=== PATIENT | female | born 1995 | race Caucasian/White ===

== ENCOUNTER 2021-02-26 22:41 | Inpatient (IN) | payer OTHER ==
[2021-02-26] MEDS ORDERED: Calcium Carbonate 500 MG Tab.Chew PO PRN (23:04)
[2021-02-26] MEDS ORDERED: Sodium Chloride 0.9% 10 ML Syringe FLUSH PRN (23:04)
[2021-02-26] MEDS ORDERED: Ondansetron 4 MG/2 ML SDV IVPUSH PRN (23:04)
[2021-02-26] MEDS ORDERED: Acetaminophen 325 MG Tab PO PRN (23:04)
[2021-02-26] MEDS ORDERED: Lidocaine 1% 50 ML MDV INJECT ONE (23:04)
[2021-02-26] MEDS ORDERED: Nalbuphine 10 MG/1 ML Vial IVPUSH PRN (23:04)
[2021-02-26] MEDS ORDERED: Oxytocin/Lactated Ringers 10 UNIT/1,000 ML BAG IV SCH ×2 (23:15)
[2021-02-26] MEDS: Lactated Ringers 1,000 ML IV SCH (23:37)
[2021-02-27] MEDS ORDERED: ePHEDrine 50 MG/ML SDV IVPUSH PRN (00:08)
[2021-02-27] MEDS ORDERED: fentaNYL 100 MCG/2 ML SDV EPIDUR PRN (00:08)
[2021-02-27] MEDS ORDERED: Bupivacaine/fentaNYL/NS 100 ML Bag EPIDUR PRN (00:08)
[2021-02-27] MEDS ORDERED: diphenhydrAMINE 50 MG/ML SDV IVPUSH PRN (00:08)
[2021-02-27] MEDS: Lactated Ringers 1,000 ML IV SCH (00:15)
--- NOTE | 2021-02-27 00:19 | PCM.PREANE ---
Preanesthetic Assessment - Procedure Proposed Procedure: Labor epidural - Anesthesia/Transfusion/Family Hx Anesthesia History: Prior Anesthesia Without Reaction Family History of Anesthesia Reaction: No Transfusion History: No Prior Transfusion(s) Intubation History: Unknown - Review of Systems General: No Symptoms Pulmonary: No Symptoms Cardiovascular: No Symptoms Gastrointestinal: Abdominal Pain (uterine contractions) Neurological: No Symptoms Other: Reports: None - Physical Assessment NPO Status Date: 02/26/21 NPO Status Time: 21:30 Vital Signs: Last Vital Signs Temp 98.4 F 02/26/21 23:05 Pulse 73 02/26/21 23:05 Resp 16 02/26/21 23:05 BP 126/88 02/26/21 23:05 Pulse Ox 98 02/26/21 23:05 Height: 1.73 m Weight: 67.132 kg ASA Class: 2 Mental Status: Alert & Oriented x3 Airway Class: Mallampati = 2 Dentition: Reports: Normal Dentition Thyro-Mental Finger Breadths: 3 Mouth Opening Finger Breadths: 3 ROM/Head Extension: Full Lungs: Clear to Auscultation, Normal Respiratory Effort Cardiovascular: Regular Rate, Regular Rhythm - Lab Values: Laboratory Last Values WBC 9.73 K/mm3 (3.98-10.04) 02/26/21 23:20 RBC 3.94 M/mm3 (3.98-5.22) L 02/26/21 23:20 Hgb 11.6 gm/dl (11.2-15.7) 02/26/21 23:20 Hct 35.0 % (34.1-44.9) 02/26/21 23:20 MCV 88.8 fl (79.4-94.8) 02/26/21 23:20 MCH 29.4 pg (25.6-32.2) 02/26/21 23:20 MCHC 33.1 g/dl (32.2-35.5) 02/26/21 23:20 RDW Std Deviation 44.2 fL (36.4-46.3) 02/26/21 23:20 Plt Count 197 K/mm3 (182-369) 02/26/21 23:20 MPV 10.0 fl (9.4-12.3) 02/26/21 23:20 Neut % (Auto) 71.4 % (34.0-71.1) H 02/26/21 23:20 Lymph % (Auto) 17.5 % (19.3-51.7) L 02/26/21 23:20 [place] % (Auto) 9.7 % (4.7-12.5) 02/26/21 23:20 Eos % (Auto) 0.8 (0.7-5.8) 02/26/21 23:20 Baso % (Auto) 0.1 % (0.1-1.2) 02/26/21 23:20 Neut # (Auto) 6.95 K/mm3 (1.56-6.13) H 02/26/21 23:20 Lymph # (Auto) 1.70 K/mm3 (1.18-3.74) 02/26/21 23:20 Scott # (Auto) 0.94 K/mm3 (0.24-0.36) H 02/26/21 23:20 Eos # (Auto) 0.08 K/mm3 (0.04-0.36) 02/26/21 23:20 Baso # (Auto) 0.01 K/mm3 (0.01-0.08) 02/26/21 23:20 SARS-CoV-2 RNA (LIONEL) Negative (NEGATIVE) 02/26/21 23:09 - Allergies Allergies/Adverse Reactions: Allergies Allergy/AdvReac Type Severity Reaction Status Date / Time amoxicillin Allergy Other Verified 02/26/21 12:55 - Blood Blood Available: No Product(s) Available: None - Anesthesia Plan Pre-Op Medication Ordered: None - Acknowledgements Anesthesia Type Planned: Epidural Pt an Appropriate Candidate for the Planned Anesthesia: Yes Alternatives and Risks of Anesthesia Discussed w Pt/Guardian: Yes Pt/Guardian Understands and Agrees with Anesthesia Plan: Yes PreAnesthesia Questionnaire Gastrointestinal History: Reports: GERD 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: - Past Surgical History HEENT Surgical History: Reports: Oral Surgery - SUBSTANCE USE Tobacco Use Status *Q: Former Tobacco User Tobacco Use Within Last Twelve Months: No Second Hand Smoke Exposure: No Days Per Week of Alcohol Use: 0 Number of Drinks Per Day: 0 Total Drinks Per Week: 0 Recreational Drug Use History: No - HOME MEDS Home Medications: Home Meds Iron,Carbonyl/Ascorbic Acid [Iron 100-Vitamin C Tablet] 1 each PO DAILY 02/26/21 [History] Pnv,Calcium 72/Iron/Folic Acid [Pnv Plus Multivit Tab] 1 each PO DAILY 02/26/21 [History] - CURRENT (IN HOUSE) MEDS Current Meds: Current Medications Acetaminophen (Acetaminophen 325 Mg Tab) 650 mg PO Q4H PRN PRN Reason: Pain (Mild 1-3) and fever Calcium Carbonate/Glycine (Calcium Carbonate 500 Mg Tab.Chew) 1,000 mg PO Q2H PRN PRN Reason: Indigestion Diphenhydramine HCl (Diphenhydramine 50 Mg/Ml Sdv) 25 mg IVPUSH Q6H PRN PRN Reason: pruritis Ephedrine Sulfate (Ephedrine 50 Mg/Ml Sdv) 5 mg IVPUSH ASDIRECTED PRN PRN Reason: Hypotension Fentanyl (Fentanyl 100 Mcg/2 Ml Sdv) 100 mcg EPIDUR Q3H PRN PRN Reason: Pain Fentanyl/Bupivacaine HCl (Bupivacaine/Fentanyl/Ns 100 Ml Bag) 100 ml EPIDUR ASDIRECTED PRN PRN Reason: Pain Lactated Ringer's (Ringers, Lactated) 1,000 mls @ 100 mls/hr IV ASDIRECTED POLI Last Admin: 02/26/21 23:37 Dose: 100 mls/hr Documented by: Oxytocin/Lactated Ringer's (Pitocin In Lr 10 Units/1,000 Ml) 10 unit in 1,000 mls @ 500 mls/hr IV .CONTINUOUS POLI Oxytocin/Lactated Ringer's (Pitocin In Lr 10 Units/1,000 Ml) 10 unit in 1,000 mls @ 12 mls/hr IV TITRATE POLI; Protocol Nalbuphine HCl (Nalbuphine 10 Mg/1 Ml Vial) 10 mg IVPUSH Q2H PRN PRN Reason: Pain Ondansetron HCl (Ondansetron 4 Mg/2 Ml Sdv) 4 mg IVPUSH Q4H PRN PRN Reason: Nausea/Vomiting Sodium Chloride (Sodium Chloride 0.9% 10 Ml Syringe) 10 ml FLUSH ASDIRECTED PRN PRN Reason: Keep Vein Open Discontinued Medications Lidocaine HCl (Lidocaine 1% 50 Ml Mdv) 50 ml INJECT ONETIME ONE Stop: 02/26/21 23:05
--- NOTE | 2021-02-27 02:51 | PCM.LDHP ---
L&D History of Present Illness - General Date of Service: 02/26/21 Admit Problem/Dx: Patient Status Order with Admit Dx/Problem 02/26/21 22:47 Patient Status [ADT] Routine 02/26/21 23:05 Patient Status [ADT] Routine 02/27/21 23:05 Patient Status [ADT] Routine Admission Diagnosis/Problem Admission Diagnosis/Problem Spontaneous vaginal delivery Source of Information: Patient History Limitations: Reports: No Limitations - History of Present Illness Introduction:: 25 yo at 40 weeks gestation presented to the hospital at 2240 having moderate contractions about every 5 minutes apart. She hadn't felt the baby move for about 20 minutes and was worried. Membranes intact. She had been in earlier in the day as well, concerned that she was leaking fluid, but Amnisure was negative and she was not having regular contractions at that time and she was sent home . She does have a history of hypothyroidism and was on lev othyroxine but was not taking it regularly during her and her TSH level was normal, so I advised her to stay off. Repeat thyroid testing was normal as well. She has had some mild anemia with the and has been taking her vitamin and an extra iron tablet. labs were wnl and all the infectious disease screenings were negative including Hep C ab. Blood type O positive. 1 hour glucola was normal at 77. Group B strep test was negative. She breastfed with her last baby for 18 months and plans to breastfeed with this baby. She is having a boy and will want him circumcised. Last ultrasound was on 02/01/21 and EFW was 6 lb 15 oz, cephalic presentation and BPP 8/8. ARTIS 11.0. On admit, RN exam revealed cervix 3-4 cm, 90% effaced, midposition, vertex prese ntation and station -2. Contractions were q 2 to 4 minutes, lasting 60 secs and moderate in intensity. Membranes intact. She will be admitted and vaginal delivery anticipated. 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 Para: 1 Hematologic History: Reports: Anemia - Past Surgical History HEENT Surgical History: Reports: Oral Surgery Social & Family History - Tobacco Use Tobacco Use Status *Q: Former Tobacco User Second Hand Smoke Exposure: No - Alcohol Use Days Per Week of Alcohol Use: 0 Number of Drinks Per Day: 0 Total Drinks Per Week: 0 - Recreational Drug Use Recreational Drug Use: No - Living Situation & Occupation Living situation: Reports: H&P Review of Systems - Review of Systems: Review Of Systems: See Below General: Reports: No Symptoms HEENT: Reports: No Symptoms Pulmonary: Reports: No Symptoms Cardiovascular: Reports: No Symptoms Gastrointestinal: Reports: No Symptoms Genitourinary: Reports: No Symptoms Musculoskeletal: Reports: No Symptoms Skin: Reports: No Symptoms Psychiatric: Reports: No Symptoms Neurological: Reports: No Symptoms Hematologic/Lymphatic: Reports: No Symptoms Immunologic: Reports: No Symptoms L&D Exam - Exam Exam: See Below - Vital Signs Vital Signs: Last Vital Signs Temp 36.9 C 02/26/21 23:05 Pulse 73 02/26/21 23:05 Resp 16 02/26/21 23:05 BP 126/88 02/26/21 23:05 Pulse Ox 98 02/26/21 23:05 Weight: 67.132 kg - OB Specific Contraction Duration (sec): 60-80 Contraction Frequency (min): 2 to 4 Contraction Intensity: Moderate Movement: Active Heart Tones: Present Heart Tones per Min: 130 Heart Rate (FHR) Variability: Moderate (6-25 bmp) Presentation: Vertex Estimated Weight: 8 lb - Bruner Score Bruner Score Cervix Position: Midposition Bruner Score Consistency: Soft Bruner Score Effacement: >80% Bruner Score Dilation: 3-4 cm Bruner Score Infant's Station: -2 Bruner Score Total: 9 - Exam General: Alert, Oriented HEENT: Mucosa Moist & [place] Lungs: Normal Respiratory Effort Cardiovascular: Regular Rate GI/Abdominal Exam: Normal Bowel Sounds Rectal Exam: Deferred Genitourinary: Normal external exam, Enlarged uterus Back Exam: Normal Inspection, Full Range of Motion Extremities: Normal Range of Motion, No Pedal Edema Skin: Warm, Dry, Intact Psychiatric: Alert, Normal Affect, Normal Mood - Patient Data Lab Results Last 24 hrs: Laboratory Results - last 24 hr 02/26/21 02/26/21 02/26/21 Range/Units 23:09 23:20 23:20 WBC 9.73 (3.98-10.04) K/mm3 RBC 3.94 L (3.98-5.22) M/mm3 Hgb 11.6 (11.2-15.7) gm/dl Hct 35.0 (34.1-44.9) % MCV 88.8 (79.4-94.8) fl MCH 29.4 (25.6-32.2) pg MCHC 33.1 (32.2-35.5) g/dl RDW Std Deviation 44.2 (36.4-46.3) fL Plt Count 197 (182-369) K/mm3 MPV 10.0 (9.4-12.3) fl Neut % (Auto) 71.4 H (34.0-71.1) % Lymph % (Auto) 17.5 L (19.3-51.7) % [place] % (Auto) 9.7 (4.7-12.5) % Eos % (Auto) 0.8 (0.7-5.8) Baso % (Auto) 0.1 (0.1-1.2) % Neut # (Auto) 6.95 H (1.56-6.13) K/mm3 Lymph # (Auto) 1.70 (1.18-3.74) K/mm3 [place] # (Auto) 0.94 H (0.24-0.36) K/mm3 Eos # (Auto) 0.08 (0.04-0.36) K/mm3 Baso # (Auto) 0.01 (0.01-0.08) K/mm3 SARS-CoV-2 RNA (LIONEL) Negative (NEGATIVE) Blood Type O POSITIVE Gel Antibody Screen Negative Result Diagrams: 02/26/21 23:20 - Problem List (1) 40 weeks gestation of SNOMED Code(s): 78434741 ICD Code: Z3A.40 - 40 WEEKS GESTATION OF Status: Acute Current Visit: Yes (2) Anemia affecting SNOMED Code(s): 98381869 ICD Code: O99.019 - ANEMIA COMPLICATING , UNSPECIFIED TRIMESTER Status: Acute Current Visit: Yes Problem List Initiated/Reviewed/Updated: Yes Orders Last 24hrs: Active Orders 24 hr Category Date Time Status Patient Status Manage Transfer [TRANSFER] Routine ADT 02/27/21 02:29 Ordered Patient Status [ADT] Routine ADT 02/27/21 23:05 Active Activity as Tolerated [RC] PFP Care 02/26/21 23:05 Active Communication Order [RC] ASDIRECTED Care 02/26/21 23:05 Active Heart Tones [RC] ASDIRECTED Care 02/26/21 23:05 Active Non Stress Test [RC] PER UNIT ROUTINE Care 02/26/21 22:47 Active Notify Provider [RC] ASDIRECTED Care 02/27/21 00:08 Active Notify Provider [RC] PFP Care 02/26/21 23:05 Active Notify Provider [RC] PRN Care 02/26/21 23:05 Active Peripheral IV Care [RC] . DIRECTED Care 02/26/21 23:05 Active Vital Signs [RC] PER UNIT ROUTINE Care 02/26/21 22:47 Active Vital Signs [RC] PER UNIT ROUTINE Care 02/26/21 23:05 Active Regular Diet [DIET] Diet 02/27/21 Breakfast Active RAPID PLASMA REAGIN,RPR [CHEM] Routine Lab 02/26/21 23:20 Received Acetaminophen [TylenoL] Med 02/26/21 23:04 Active 650 mg PO Q4H PRN Bupivacaine/fentaNYL/NS [fentaNYL/Bupivacaine/NS 2 MCG- Med 02/27/21 00:08 Active 0.125% 100 ML] 100 ml EPIDUR ASDIRECTED PRN Calcium Carbonate [Tums] Med 02/26/21 23:04 Active 1,000 mg PO Q2H PRN Lactated Ringers [Ringers, Lactated] 1,000 ml Med 02/26/21 23:15 Active IV ASDIRECTED Nalbuphine [Nubain] Med 02/26/21 23:04 Active 10 mg IVPUSH Q2H PRN Ondansetron [Zofran] Med 02/26/21 23:04 Active 4 mg IVPUSH Q4H PRN Oxytocin/Lactated Ringers [Pitocin in LR 10 Units/1,000 Med 02/26/21 23:15 Active ML] 10 unit in 1,000 ml IV .CONTINUOUS Oxytocin/Lactated Ringers [Pitocin in LR 10 Units/1,000 Med 02/26/21 23:15 Active ML] 10 unit in 1,000 ml IV TITRATE Sodium Chloride 0.9% [Saline Flush] Med 02/26/21 23:04 Active 10 ml FLUSH ASDIRECTED PRN diphenhydrAMINE [Benadryl] Med 02/27/21 00:08 Active 25 mg IVPUSH Q6H PRN ePHEDrine [ePHEDrine sulfate] Med 02/27/21 00:08 Active 5 mg IVPUSH ASDIRECTED PRN fentaNYL [Sublimaze] Med 02/27/21 00:08 Active 100 mcg EPIDUR Q3H PRN Electronic Heart Tones Ext w TOCO [WOMSER] Oth 02/26/21 23:05 Ordered Routine Electronic Heart Tones Internal [WOMSER] Per Unit Oth 02/26/21 23:05 Ordered Routine Peripheral IV Insertion Adult [OM.PC] Routine Oth 02/26/21 23:05 Ordered Resuscitation Status Routine Resus Stat 02/26/21 23:04 Ordered Medication Orders Acetaminophen (Acetaminophen 325 Mg Tab) 650 mg PO Q4H PRN PRN Reason: Pain (Mild 1-3) and fever Calcium Carbonate/Glycine (Calcium Carbonate 500 Mg Tab.Chew) 1,000 mg PO Q2H PRN PRN Reason: Indigestion Diphenhydramine HCl (Diphenhydramine 50 Mg/Ml Sdv) 25 mg IVPUSH Q6H PRN PRN Reason: pruritis Ephedrine Sulfate (Ephedrine 50 Mg/Ml Sdv) 5 mg IVPUSH ASDIRECTED PRN PRN Reason: Hypotension Fentanyl (Fentanyl 100 Mcg/2 Ml Sdv) 100 mcg EPIDUR Q3H PRN PRN Reason: Pain Last Admin: 02/27/21 00:19 Dose: 100 mcg Documented by: AVEL Fentanyl/Bupivacaine HCl (Bupivacaine/Fentanyl/Ns 100 Ml Bag) 100 ml EPIDUR ASDIRECTED PRN PRN Reason: Pain Last Admin: 02/27/21 00:19 Dose: 100 ml Documented by: AVEL Lactated Ringer's (Ringers, Lactated) 1,000 mls @ 100 mls/hr IV ASDIRECTED POLI Last Admin: 02/27/21 00:15 Dose: 100 mls/hr Documented by: Infusion: 02/27/21 00:15 Dose: 100 mls/hr Documented by: Admin: 02/26/21 23:37 Dose: 100 mls/hr Documented by: FIDEL Oxytocin/Lactated Ringer's (Pitocin In Lr 10 Units/1,000 Ml) 10 unit in 1,000 mls @ 500 mls/hr IV .CONTINUOUS POLI Oxytocin/Lactated Ringer's (Pitocin In Lr 10 Units/1,000 Ml) 10 unit in 1,000 mls @ 12 mls/hr IV TITRATE POLI; Protocol Nalbuphine HCl (Nalbuphine 10 Mg/1 Ml Vial) 10 mg IVPUSH Q2H PRN PRN Reason: Pain Ondansetron HCl (Ondansetron 4 Mg/2 Ml Sdv) 4 mg IVPUSH Q4H PRN PRN Reason: Nausea/Vomiting Sodium Chloride (Sodium Chloride 0.9% 10 Ml Syringe) 10 ml FLUSH ASDIRECTED PRN PRN Reason: Keep Vein Open Assessment/Plan Comment:: 25 yo at 40 weeks gestation presents in spontaneous labor, membranes intact. Cervix 3-4 cm, 90% effaced, vertex presentation and regular contractions. Plan: Admit in early labor. Expectant management, anticipate vaginal delivery. Epidural if patient requests. Plan skin to skin after delivery and . Patient would like to wait 24 hours for Hep B vaccination, but OK with immediate vitamin K and eye ointment. Plan for circumcision after about 12 hours of age.
[2021-02-27] MEDS ORDERED: Bupivacaine 0.25% 10 ML SDV ONE (03:00)
--- NOTE | 2021-02-27 03:12 | PCM.DEL ---
L & D Note - General Info Date of Service: 02/27/21 Mother's Due Date: 02/26/21 - Delivery Note Labor: Spontaneous Delivery Outcome: Livebirth Infant Delivery Method: Spontaneous Vaginal Delivery-Single Infant Delivery Mode: Spontaneous Presentation: Left Occiput Anterior (PRINCESS) Nuchal Cord: None Anesthesia Type: Epidural Amniotic Fluid Description: Clear Episiotomy Type: None Laceration: None Placenta: Intact, Spontaneous Cord: 3 Vessels Estimated Blood Loss: 100 Resuscitation Needed: No : Suctioned, Bulb Syringe, Stimulated, Warmed, [place] Used Provider: Indira Hernandez Score 1 min: 9 Score 5 min: 9 Delivery Comments (Free Text/Narrative):: 25 yo at 40 weeks gestation presented to the hospital at 2240 having moderate contractions about every 5 minutes apart. She hadn't felt the baby move for about 20 minutes and was worried. Membranes intact. She had been in earlier in the day as well, concerned that she was leaking fluid, but Amnisure was negative and she was not having regular contractions at that time and she was sent home . She does have a history of hypothyroidism and was on levothyroxine but was not taking it regularly during her and her TSH level was normal, so I advised her to stay off. Repeat thyroid testing was normal as well. She has had some mild anemia with the and has been taking her vitamin and an extra iron tablet. labs were wnl and all the infectious disease screenings were negative including Hep C ab. Blood type O positive. 1 hour glucola was normal at 77. Group B strep test was negative. She breastfed with her last baby for 18 months and plans to breastfeed with this baby. She is having a boy and will want him circumcised. Last ultrasound was on 02/01/21 and EFW was 6 lb 15 oz, cephalic presentation and BPP 8/8. ARTIS 11.0. On admit, RN exam revealed cervix 3-4 cm, 90% effaced, midposition, vertex presentation and station -2. Contractions were q 2 to 4 minutes, lasting 60 secs and moderate in intensity. Membranes intact. She had SROM at 2337 for clear fluid. Her contractions intensified after that and she did request an epidural which was completed at 0100. [place] catheter was placed after epidural and 350 ml drained. She was feeling left pelvic pain and monitor was showing early decels and RN checked her at 0120 and she was 9 cm, 100% effaced a nd 0 station. When I arrived at the hospital at 0130, she was completely dilated with +2 station and we had her set up to start pushing. She delivered baby's head with 1 set of pushes and the shoulders and the rest of the baby with another set of pushes. Perineum was intact. There was no nuchal cord. Baby was in PRINCESS presentation. Baby boy with time of delivery 0145. Baby was dried and stimulated and mouth and nose suctioned with bulb suction and then placed on mother's abdomen. Once the cord stopped pulsating, it was clamped and cut. 3 vessels in the cord. She was given pitocin IV bolus after delivery of baby. Placenta delivered spontaneously at 0151 and was intact. Uterus was firm, bimanual exam done and small amount of blood clots expressed. EBL 100 ml. Baby weighed 8 lb 12 oz (3970 grams). He was placed skin to skin on mother's chest and was latched and nursing by 0210. Both Mom and baby were left in the delivery room in stable condition. - General Info Date of Service: 02/27/21 Admission Dx/Problem (Free Text): Patient Status Order with Admit Dx/Problem 02/26/21 22:47 Patient Status [ADT] Routine 02/26/21 23:05 Patient Status [ADT] Routine 02/27/21 23:05 Patient Status [ADT] Routine Admission Diagnosis/Problem Admission Diagnosis/Problem Spontaneous vaginal delivery - Review of Systems General: Reports: No Symptoms HEENT: Reports: No Symptoms Pulmonary: Reports: No Symptoms Cardiovascular: Reports: No Symptoms Gastrointestinal: Reports: No Symptoms Genitourinary: Reports: No Symptoms Musculoskeletal: Reports: No Symptoms Skin: Reports: No Symptoms Neurological: Reports: No Symptoms Psychiatric: Reports: No Symptoms - Patient Data Vitals - Most Recent: Last Vital Signs Temp 36.9 C 02/26/21 23:05 Pulse 73 02/26/21 23:05 Resp 16 02/26/21 23:05 BP 126/88 02/26/21 23:05 Pulse Ox 98 02/26/21 23:05 Weight - Most Recent: 67.132 kg Lab Results Last 24 Hours: Laboratory Results - last 24 hr 07/06/0902/26/21 02/26/21 Range/Units 23:09 23:20 23:20 WBC 9.73 (3.98-10.04) K/mm3 RBC 3.94 L (3.98-5.22) M/mm3 Hgb 11.6 (11.2-15.7) gm/dl Hct 35.0 (34.1-44.9) % MCV 88.8 (79.4-94.8) fl MCH 29.4 (25.6-32.2) pg MCHC 33.1 (32.2-35.5) g/dl RDW Std Deviation 44.2 (36.4-46.3) fL Plt Count 197 (182-369) K/mm3 MPV 10.0 (9.4-12.3) fl Neut % (Auto) 71.4 H (34.0-71.1) % Lymph % (Auto) 17.5 L (19.3-51.7) % [place] % (Auto) 9.7 (4.7-12.5) % Eos % (Auto) 0.8 (0.7-5.8) Baso % (Auto) 0.1 (0.1-1.2) % Neut # (Auto) 6.95 H (1.56-6.13) K/mm3 Lymph # (Auto) 1.70 (1.18-3.74) K/mm3 [place] # (Auto) 0.94 H (0.24-0.36) K/mm3 Eos # (Auto) 0.08 (0.04-0.36) K/mm3 Baso # (Auto) 0.01 (0.01-0.08) K/mm3 SARS-CoV-2 RNA (LIONEL) Negative (NEGATIVE) Blood Type O POSITIVE Gel Antibody Screen Negative Med Orders - Current: Current Medications Acetaminophen (Acetaminophen 325 Mg Tab) 650 mg PO Q4H PRN PRN Reason: Pain (Mild 1-3) and fever Calcium Carbonate/Glycine (Calcium Carbonate 500 Mg Tab.Chew) 1,000 mg PO Q2H PRN PRN Reason: Indigestion Diphenhydramine HCl (Diphenhydramine 50 Mg/Ml Sdv) 25 mg IVPUSH Q6H PRN PRN Reason: pruritis Ephedrine Sulfate (Ephedrine 50 Mg/Ml Sdv) 5 mg IVPUSH ASDIRECTED PRN PRN Reason: Hypotension Fentanyl (Fentanyl 100 Mcg/2 Ml Sdv) 100 mcg EPIDUR Q3H PRN PRN Reason: Pain Last Admin: 02/27/21 00:19 Dose: 100 mcg Documented by: Fentanyl/Bupivacaine HCl (Bupivacaine/Fentanyl/Ns 100 Ml Bag) 100 ml EPIDUR ASDIRECTED PRN PRN Reason: Pain Last Admin: 02/27/21 00:19 Dose: 100 ml Documented by: Lactated Ringer's (Ringers, Lactated) 1,000 mls @ 100 mls/hr IV ASDIRECTED POLI Last Admin: 02/27/21 00:15 Dose: 100 mls/hr Documented by: Oxytocin/Lactated Ringer's (Pitocin In Lr 10 Units/1,000 Ml) 10 unit in 1,000 mls @ 500 mls/hr IV .CONTINUOUS POLI Oxytocin/Lactated Ringer's (Pitocin In Lr 10 Units/1,000 Ml) 10 unit in 1,000 mls @ 12 mls/hr IV TITRATE POLI; Protocol Nalbuphine HCl (Nalbuphine 10 Mg/1 Ml Vial) 10 mg IVPUSH Q2H PRN PRN Reason: Pain Ondansetron HCl (Ondansetron 4 Mg/2 Ml Sdv) 4 mg IVPUSH Q4H PRN PRN Reason: Nausea/Vomiting Sodium Chloride (Sodium Chloride 0.9% 10 Ml Syringe) 10 ml FLUSH ASDIRECTED PRN PRN Reason: Keep Vein Open Discontinued Medications Lidocaine HCl (Lidocaine 1% 50 Ml Mdv) 50 ml INJECT ONETIME ONE Stop: 02/26/21 23:05 - Exam General: Alert, Oriented, Cooperative, No Acute Distress HEENT: Pupils Equal, Mucous Membr. Moist/[place] Neck: Supple Lungs: Normal Respiratory Effort Cardiovascular: Regular Rate, Regular Rhythm GI/Abdominal Exam: Normal Bowel Sounds, Soft (Female) Exam: Normal External Exam, Vaginal Bleeding, Other (fundus firm, at umbilicus) Back Exam: Normal Inspection, Full Range of Motion Extremities: Normal Inspection, Normal Range of Motion, Non-Tender, No Pedal Edema, Normal Capillary Refill Skin: Warm, Dry, Intact Neurological: No New Focal Deficit Psy/Mental Status: Alert, Normal Affect, Normal Mood - Problem List & Annotations (1) 40 weeks gestation of SNOMED Code(s): 38957152 Code(s): Z3A.40 - 40 WEEKS GESTATION OF Status: Acute Current Visit: Yes (2) Anemia affecting SNOMED Code(s): 88527308 Code(s): O99.019 - ANEMIA COMPLICATING , UNSPECIFIED TRIMESTER Status: Acute Current Visit: Yes (3) Normal spontaneous vaginal delivery SNOMED Code(s): 91095217, 650329133 Code(s): O80 - ENCOUNTER FOR FULL-TERM UNCOMPLICATED DELIVERY Status: Acute Current Visit: Yes (4) Breast feeding status of mother SNOMED Code(s): 350222229 Code(s): Z39.1 - ENCOUNTER FOR CARE AND EXAMINATION OF LACTATING MOTHER Status: Acute Current Visit: Yes - Problem List Review Problem List Initiated/Reviewed/Updated: Yes - My Orders Last 24 Hours: My Active Orders 02/27/21 02:29 Patient Status Manage Transfer [TRANSFER] Routine 02/27/21 23:05 Patient Status [ADT] Routine - Assessment Assessment:: at 40+1 weeks gestation with spontaneous onset of labor and SROM. GBS negative. No perineal laceration. EBL 100 ml, uterus firm after delivery of placenta. Epidural for labor analgesia without complications. Baby latched and was nursing 25 minutes after delivery. Plan: Routine care. support and education. - Plan Plan:: 25 yo at 40 weeks gestation presents in spontaneous labor, membranes intact. Cervix 3-4 cm, 90% effaced, vertex presentation and regular contractions. Plan: Admit in early labor. Expectant management, anticipate vaginal delivery. Epidural if patient requests. Plan skin to skin after delivery and . Patient would like to wait 24 hours for Hep B vaccination, but OK with immediate vitamin K and eye ointment. Plan for circumcision after about 12 hours of age.
[2021-02-27] MEDS ORDERED: Benzocaine/Menthol 20%-0.5% Spray 56 GM Canister TOP PRN (03:34)
[2021-02-27] MEDS ORDERED: Witch Hazel Medicated Pads 40/Jar TOP PRN (03:34)
[2021-02-27] MEDS: Prenatal Multivitamin with Calcium/Folic Acid/Iron Tab PO SCH (08:03)
[2021-02-27] MEDS: Ibuprofen 800 MG Tab PO PRN ×3 (08:03→22:11)
--- NOTE | 2021-02-27 16:27 | PCM.PNPP ---
- General Info Date of Service: 02/27/21 Admission Dx/Problem (Free Text): Patient Status Order with Admit Dx/Problem 02/26/21 22:47 Patient Status [ADT] Routine 02/26/21 23:05 Patient Status [ADT] Routine 02/27/21 23:05 Patient Status [ADT] Routine Admission Diagnosis/Problem Admission Diagnosis/Problem Spontaneous vaginal delivery Functional Status: Reports: Pain Controlled, Tolerating Diet, Ambulating, Urinating - Review of Systems General: Reports: No Symptoms HEENT: Reports: No Symptoms Pulmonary: Reports: No Symptoms Cardiovascular: Reports: No Symptoms Gastrointestinal: Reports: No Symptoms Genitourinary: Reports: No Symptoms Musculoskeletal: Reports: No Symptoms Skin: Reports: No Symptoms Neurological: Reports: No Symptoms Psychiatric: Reports: No Symptoms - General Info Date of Service: 02/27/21 - Patient Data Vital Signs - Most Recent: Last Vital Signs Temp 36.8 C 02/27/21 14:36 Pulse 71 02/27/21 14:36 Resp 14 02/27/21 14:36 BP 96/53 L 02/27/21 14:36 Pulse Ox 98 02/27/21 14:36 Weight - Most Recent: 67.132 kg I&O - Last 24 Hours: Intake & Output 02/27/21 02/27/21 02/27/21 06:59 14:59 22:59 Intake Total 2700 200 Output Total 350 Balance 2350 200 Lab Results - Last 24 Hours: Laboratory Results - last 24 hr 02/26/21 02/26/21 02/26/21 Range/Units 23:09 23:20 23:20 WBC 9.73 (3.98-10.04) K/mm3 RBC 3.94 L (3.98-5.22) M/mm3 Hgb 11.6 (11.2-15.7) gm/dl Hct 35.0 (34.1-44.9) % MCV 88.8 (79.4-94.8) fl MCH 29.4 (25.6-32.2) pg MCHC 33.1 (32.2-35.5) g/dl RDW Std Deviation 44.2 (36.4-46.3) fL Plt Count 197 (182-369) K/mm3 MPV 10.0 (9.4-12.3) fl Neut % (Auto) 71.4 H (34.0-71.1) % Lymph % (Auto) 17.5 L (19.3-51.7) % [place] % (Auto) 9.7 (4.7-12.5) % Eos % (Auto) 0.8 (0.7-5.8) Baso % (Auto) 0.1 (0.1-1.2) % Neut # (Auto) 6.95 H (1.56-6.13) K/mm3 Lymph # (Auto) 1.70 (1.18-3.74) K/mm3 [place] # (Auto) 0.94 H (0.24-0.36) K/mm3 Eos # (Auto) 0.08 (0.04-0.36) K/mm3 Baso # (Auto) 0.01 (0.01-0.08) K/mm3 RPR (NONREACTIVE) SARS-CoV-2 RNA (LIONEL) Negative (NEGATIVE) Blood Type O POSITIVE Gel Antibody Screen Negative 02/26/21 Range/Units 23:20 WBC (3.98-10.04) K/mm3 RBC (3.98-5.22) M/mm3 Hgb (11.2-15.7) gm/dl Hct (34.1-44.9) % MCV (79.4-94.8) fl MCH (25.6-32.2) pg MCHC (32.2-35.5) g/dl RDW Std Deviation (36.4-46.3) fL Plt Count (182-369) K/mm3 MPV (9.4-12.3) fl Neut % (Auto) (34.0-71.1) % Lymph % (Auto) (19.3-51.7) % [place] % (Auto) (4.7-12.5) % Eos % (Auto) (0.7-5.8) Baso % (Auto) (0.1-1.2) % Neut # (Auto) (1.56-6.13) K/mm3 Lymph # (Auto) (1.18-3.74) K/mm3 [place] # (Auto) (0.24-0.36) K/mm3 Eos # (Auto) (0.04-0.36) K/mm3 Baso # (Auto) (0.01-0.08) K/mm3 RPR Non-reactive (NONREACTIVE) SARS-CoV-2 RNA (LIONEL) (NEGATIVE) Blood Type Gel Antibody Screen Med Orders - Current: Current Medications Benzocaine/Menthol (Benzocaine/Menthol 20%-0.5% [place] 56 Gm Canister) 0 gm TOP ASDIRECTED PRN PRN Reason: Perineal Comfort Measure Docusate Sodium (Docusate Sodium 100 Mg Cap) 100 mg PO BID PRN PRN Reason: Constipation Ibuprofen (Ibuprofen 800 Mg Tab) 800 mg PO Q6H PRN PRN Reason: Mild pain or fever Last Admin: 02/27/21 16:06 Dose: 800 mg Documented by: Prenat Multivit/[place]/Iron/Folic Ac ( Multivitamin With Calcium/Folic Acid/Iron Tab) 1 each PO DAILY [facility] Last Admin: 02/27/21 08:03 Dose: 1 each Documented by: Renzo Chavez (Renzo Chavez Medicated Pads 40/Jar) 1 pad TOP ASDIRECTED PRN PRN Reason: Perineal Comfort Measure Discontinued Medications Acetaminophen (Acetaminophen 325 Mg Tab) 650 mg PO Q4H PRN PRN Reason: Pain (Mild 1-3) and fever Bupivacaine HCl (Bupivacaine 0.25% 10 Ml Sdv) 10 ml .ROUTE .STK-MED ONE Stop: 02/27/21 03:01 Calcium Carbonate/Glycine (Calcium Carbonate 500 Mg Tab.Chew) 1,000 mg PO Q2H PRN PRN Reason: Indigestion Diphenhydramine HCl (Diphenhydramine 50 Mg/Ml Sdv) 25 mg IVPUSH Q6H PRN PRN Reason: pruritis Ephedrine Sulfate (Ephedrine 50 Mg/Ml Sdv) 5 mg IVPUSH ASDIRECTED PRN PRN Reason: Hypotension Fentanyl (Fentanyl 100 Mcg/2 Ml Sdv) 100 mcg EPIDUR Q3H PRN PRN Reason: Pain Last Admin: 02/27/21 00:19 Dose: 100 mcg Documented by: Fentanyl/Bupivacaine HCl (Bupivacaine/Fentanyl/Ns 100 Ml Bag) 100 ml EPIDUR ASDIRECTED PRN PRN Reason: Pain Last Admin: 02/27/21 00:19 Dose: 100 ml Documented by: Lactated Ringer's (Ringers, Lactated) 1,000 mls @ 100 mls/hr IV ASDIRECTED POLI Last Admin: 02/27/21 00:15 Dose: 100 mls/hr Documented by: Oxytocin/Lactated Ringer's (Pitocin In Lr 10 Units/1,000 Ml) 10 unit in 1,000 mls @ 500 mls/hr IV .CONTINUOUS POLI Last Admin: 02/27/21 01:46 Dose: 500 mls/hr Documented by: Oxytocin/Lactated Ringer's (Pitocin In Lr 10 Units/1,000 Ml) 10 unit in 1,000 mls @ 12 mls/hr IV TITRATE POLI; Protocol Lidocaine HCl (Lidocaine 1% 50 Ml Mdv) 50 ml INJECT ONETIME ONE Stop: 02/26/21 23:05 Last Admin: 02/27/21 03:40 Dose: Not Given Documented by: Nalbuphine HCl (Nalbuphine 10 Mg/1 Ml Vial) 10 mg IVPUSH Q2H PRN PRN Reason: Pain Ondansetron HCl (Ondansetron 4 Mg/2 Ml Sdv) 4 mg IVPUSH Q4H PRN PRN Reason: Nausea/Vomiting Sodium Chloride (Sodium Chloride 0.9% 10 Ml Syringe) 10 ml FLUSH ASDIRECTED PRN PRN Reason: Keep Vein Open - Infant Interaction Disposition, : [place] in Room with Family Interaction: Holding Infant Infant Feeding: Breastfed Infant; Nursed Well Support Person: - Recovery Exam Fundal Tone: Firm Fundal Level: 2 Fingerbreadths Below Umbilicus Fundal Placement: Left Lochia Amount: Small Lochia Color: Rubra/Red Perineum Description: Intact, Minimal Bruising/Swelling Episiotomy/Laceration: None Bladder Status: Voiding Urinary Elimination: Voided - Exam General: Alert, Oriented, Cooperative, No Acute Distress HEENT: Pupils Equal, Mucous Membr. Moist/[place] Neck: Supple Lungs: Normal Respiratory Effort Cardiovascular: Regular Rate, Regular Rhythm GI/Abdominal Exam: Normal Bowel Sounds, Soft, No Distention Extremities: Normal Inspection, Non-Tender, No Pedal Edema, Normal Capillary Refill Skin: Warm, Dry, Intact Neurological: No New Focal Deficit Psy/Mental Status: Alert, Normal Affect, Normal Mood - Problem List & Annotations (1) 40 weeks gestation of SNOMED Code(s): 24880161 Code(s): Z3A.40 - 40 WEEKS GESTATION OF Status: Acute Current Visit: Yes (2) Anemia affecting SNOMED Code(s): 94266257 Code(s): O99.019 - ANEMIA COMPLICATING , UNSPECIFIED TRIMESTER Status: Acute Current Visit: Yes (3) Normal spontaneous vaginal delivery SNOMED Code(s): 40819650, 050694718 Code(s): O80 - ENCOUNTER FOR FULL-TERM UNCOMPLICATED DELIVERY Status: Acute Current Visit: Yes (4) Breast feeding status of mother SNOMED Code(s): 405660627 Code(s): Z39.1 - ENCOUNTER FOR CARE AND EXAMINATION OF LACTATING MOTHER Status: Acute Current Visit: Yes - Problem List Review Problem List Initiated/Reviewed/Updated: Yes - My Orders Last 24 Hours: My Active Orders 02/27/21 03:34 Benzocaine/Menthol [Dermoplast Pain Relief [place]] See Dose Instructions TOP ASDIRECTED PRN Docusate Sodium [Colace] 100 mg PO BID PRN Ibuprofen [Motrin] 800 mg PO Q6H PRN witch Lita [Tucks] 1 pad TOP ASDIRECTED PRN Heat Therapy [OM.PC] PRN 02/27/21 03:34 Patient Status [ADT] Routine Activity as Tolerated [RC] PER UNIT ROUTINE May Shower [RC] ASDIRECTED Up ad [place] [RC] ASDIRECTED Vital Signs [RC] ,,, Assess Lochia [WOMSER] Per Unit Routine Assess Uterine Involution [WOMSER] Per Unit Routine Breast Pump [WOMSER] Per Unit Routine Medication Administration Instruction [OM.PC] Routine Perineal Care [OM.PC] Per Unit Routine Sitz Bath [OM.PC] Per Unit Routine 02/27/21 09:00 Vit with Ca/FA/Iron [ Plus Iron] 1 each PO DAILY 02/28/21 03:34 Heat Therapy [OM.PC] PRN - Assessment Assessment:: at 40+1 weeks gestation with spontaneous onset of labor and SROM. GBS negative. No perineal laceration. EBL 100 ml, uterus firm after delivery of placenta. Epidural for labor analgesia without complications. Baby latched and was nursing 25 minutes after delivery. Plan: Routine care. support and education. 1210: without difficulty. Pain controlled with ibuprofen, bleeding is light and no clots. - Plan Plan:: 25 yo at 40 weeks gestation presents in spontaneous labor, membranes intact. Cervix 3-4 cm, 90% effaced, vertex presentation and regular contractions. Plan: Admit in early labor. Expectant management, anticipate vaginal delivery. Epidural if patient requests. Plan skin to skin after delivery and . Patient would like to wait 24 hours for Hep B vaccination, but OK with immediate vitamin K and eye ointment. Plan for circumcision after about 12 hours of age. 02/27/21 1210 Plan: Continue routine care and support and encouragement. Plan to discharge home with baby tomorrow am. Will follow up for 6 week visit.
[2021-02-27] MEDS: Docusate Sodium 100 MG Cap PO PRN (22:11)
[2021-02-28] MEDS: Ibuprofen 800 MG Tab PO PRN (04:18)
--- NOTE | 2021-02-28 07:21 | PCM48HPAN ---
Post Anesthesia Note - EVALUATION WITHIN 48HRS OF ANESTHETIC Vital Signs in Normal Range: Yes Patient Participated in Evaluation: Yes Respiratory Function Stable: Yes Airway Patent: Yes Cardiovascular Function Stable: Yes Hydration Status Stable: Yes Pain Control Satisfactory: Yes Nausea and Vomiting Control Satisfactory: Yes Mental Status Recovered: Yes Vital Signs: Last Vital Signs Temp 97.9 F 02/28/21 03:59 Pulse 70 02/28/21 03:59 Resp 16 02/28/21 03:59 BP 103/56 L 02/28/21 03:59 Pulse Ox 99 02/28/21 03:59 - COMMENTS/OBSERVATIONS Free Text/Narrative:: no complaints
[2021-02-28] MEDS: Prenatal Multivitamin with Calcium/Folic Acid/Iron Tab PO SCH (07:52)
[2021-02-28] MEDS: Docusate Sodium 100 MG Cap PO PRN (07:53)
--- NOTE | 2021-02-28 08:45 | PCM.DCSUM1 ---
Discharge Summary - Hospital Course Free Text/Narrative:: 25 yo at 40 weeks gestation presented to the hospital at 2240 having moderate contractions about every 5 minutes apart. She hadn't felt the baby move for about 20 minutes and was worried. Membranes intact. She had been in earlier in the day as well, concerned that she was leaking fluid, but Amnisure was negative and she was not having regular contractions at that time and she was sent home . She does have a history of hypothyroidism and was on l evothyroxine but was not taking it regularly during her and her TSH level was normal, so I advised her to stay off. Repeat thyroid testing was normal as well. She has had some mild anemia with the and has been taking her vitamin and an extra iron tablet. labs were wnl and all the infectious disease screenings were negative including Hep C ab. Blood type O positive. 1 hour glucola was normal at 77. Group B strep test was negative. She breastfed with her last baby for 18 months and plans to breastfeed with this baby. She is having a boy and will want him circumcised. Last ultrasound was on 02/01/21 and EFW was 6 lb 15 oz, cephalic presentation and BPP 8/8. ARTIS 11.0. On admit, RN exam revealed cervix 3-4 cm, 90% effaced, midposition, vertex pre sentation and station -2. Contractions were q 2 to 4 minutes, lasting 60 secs and moderate in intensity. Membranes intact. She had SROM at 2337 for clear fluid. Her contractions intensified after that and she did request an epidural which was completed at 0100. [place] catheter was placed after epidural and 350 ml drained. She was feeling left pelvic pain and monitor was showing early decels and RN checked her at 0120 and she was 9 cm, 100% effaced and 0 station. When I arrived at the hospital at 0130, she was completely dilated with +2 station and we had her set up to start pushing. She delivered baby's head with 1 set of pushes and the shoulders and the rest of the baby with another set of pushes. Perineum was intact. There was no nuchal cord. Baby was in PRINCESS presentation. Baby boy with time of delivery 0145. Baby was dried and stimulated and mouth and nose suctioned with bulb suction and then placed on mother's abdomen. Once the cord stopped pulsating, it was clamped and cut. 3 vessels in the cord. She was given pitocin IV bolus after delivery of baby. Placenta delivered spontaneously at 0151 and was intact. Uterus was firm, bimanual exam done and small amount of blood clots expressed. EBL 100 ml. Baby weighed 8 lb 12 oz (3970 grams). He was placed skin to skin on mother's chest and was latched and nursing by 0210. Both Mom and baby were left in the [facility] room in stable condition. She has done well, regularly and denies nipple pain. Is noticing milk with hand expression. Bleeding is light flow like a period, denies clots. Denies dizziness. Using ibuprofen for cramping. Denies headache. No leg swelling or calf pain. EPDS was 3. Diagnosis: Stroke: No Modified Bang Scale: No Symptoms at All Modified [place] Scale Score: 0 - Discharge Data Discharge Date: 02/28/21 Discharge Disposition: Home, Self-Care 01 Condition: Good - Referral to Home Health Primary Care Physician: Indira Hernandez MD - Discharge Diagnosis/Problem(s) (1) 40 weeks gestation of SNOMED Code(s): 01382793 ICD Code: Z3A.40 - 40 WEEKS GESTATION OF Status: Acute Current Visit: Yes (2) Anemia affecting SNOMED Code(s): 75055780 ICD Code: O99.019 - ANEMIA COMPLICATING , UNSPECIFIED TRIMESTER Status: Acute Current Visit: Yes (3) Normal spontaneous vaginal delivery SNOMED Code(s): 73098996, 156602891 ICD Code: O80 - ENCOUNTER FOR FULL-TERM UNCOMPLICATED DELIVERY Status: Acute Current Visit: Yes (4) Breast feeding status of mother SNOMED Code(s): 065439952 ICD Code: Z39.1 - ENCOUNTER FOR CARE AND EXAMINATION OF LACTATING MOTHER Status: Acute Current Visit: Yes - Patient Instructions Diet: Regular Diet as Tolerated, Drink 8-10+ Glasses/Day, No Alcoholic Beverages Feeding Instructions: 1. Feed on demand. 2. Try not to let baby go longer than 3 hours without trying to wake him up to nurse. Activity: As Tolerated Driving: May Drive Today Showering/Bathing: May Shower Notify Provider of: Fever, Increased Pain, Swelling and Redness, Drainage, Nausea and/or Vomiting - Discharge Plan *PRESCRIPTION DRUG MONITORING PROGRAM REVIEWED*: No *COPY OF PRESCRIPTION DRUG MONITORING REPORT IN PATIENT EDILSON: No Home Medications: Home Meds Iron,Carbonyl/Ascorbic Acid [Iron 100-Vitamin C Tablet] 1 each PO DAILY 02/26/21 [History] Pnv,Calcium 72/Iron/Folic Acid [Pnv Plus Multivit Tab] 1 each PO DAILY 02/26/21 [History] Benzocaine/Menthol [Dermoplast Pain Relief [place]] 1 applic TOP ASDIRECTED PRN canister 02/27/21 [Rx] Docusate Sodium [Colace] 100 mg PO BID PRN cap 02/27/21 [Rx] Ibuprofen [Motrin] 800 mg PO Q6H PRN tablet 02/27/21 [Rx] renzo Lita [Tucks] 1 pad TOP ASDIRECTED PRN pad 02/27/21 [Rx] Oxygen Therapy Mode: Room Air Patient Handouts: Exclusive , Breast Pumping Tips, and Low Milk Supply, and Mastitis, and Self-Care, Breast Engorgement, Nursing Strike, [id number] Contact, , Tips for a Good Latch, and Cracked or Sore Nipples, [id number], Eating Plan for Women - Discharge Summary/Plan Comment DC Time >30 min.: No Discharge Summary/Plan Comment: 25 yo at 40 weeks gestation presented to the hospital at 2240 having moderate contractions about every 5 minutes apart. She hadn't felt the baby move for about 20 minutes and was worried. Membranes intact. She had been in earlier in the day as well, concerned that she was leaking fluid, but Amnisure was negative and she was not having regular contractions at that time and she was sent home . She does have a history of hypothyroidism and was on levothyroxine but was not taking it regularly during her and her TSH level was normal, so I advised her to stay off. Repeat thyroid testing was normal as well. She has had some mild anemia with the and has been taking her vitamin and an extra iron tablet. labs were wnl and all the infectious disease screenings were negative including Hep C ab. Blood type O positive. 1 hour glucola was normal at 77. Group B strep test was negative. She breastfed with her last baby for 18 months and plans to breastfeed with this baby. She is having a boy and will want him circumcised. Last ultrasound was on 02/01/21 and EFW was 6 lb 15 oz, cephalic presentation and BPP 8/8. ARTIS 11.0. On admit, RN exam revealed cervix 3-4 cm, 90% effaced, midposition, vertex presentation and station -2. Contractions were q 2 to 4 minutes, lasting 60 secs and moderate in intensity. Membranes intact. She had SROM at 2337 for clear fluid. Her contractions intensified after that and she did request an epidural which was completed at 0100. [place] catheter was placed after epidural and 350 ml drained. She was feeling left pelvic pain and monitor was showing early decels and RN checked her at 0120 and she was 9 cm, 100% effaced and 0 station. When I arrived at the hospital at 0130, she was completely dilated with +2 station and we had her set up to start pushing. She delivered baby's head with 1 set of pushes and the shoulders and the rest of the baby with another set of pushes. Perineum was intact. There was no nuchal cord. Baby was in PRINCESS presentation. Baby boy with time of delivery 0145. Baby was dried and stimulated and mouth and nose suctioned with bulb suction and then placed on mother's abdomen. Once the cord stopped pulsating, it was clamped and cut. 3 vessels in the cord. She was given pitocin IV bolus after delivery of baby. Placenta delivered spontaneously at 0151 and was intact. Uterus was firm, bimanual exam done and small amount of blood clots expressed. EBL 100 ml. Baby weighed 8 lb 12 oz (3970 grams). He was placed skin to skin on mother's chest and was latched and nursing by 0210. Both Mom and baby were left in the delivery room in stable condition. She has done well, regularly and denies nipple pain. Is noticing milk with hand expression. Bleeding is light flow like a period, denies clots. Denies dizziness. Using ibuprofen for cramping. Denies headache. No leg swelling or calf pain. EPDS was 3. A/P: 1. at 40 weeks - continue routine care. Follow up with Dr. Hernandez in the clinic in 6 weeks. 2. - continue to breastfeed on demand. Discussed proper latch and listening for swallow. Will see baby in clinic tomorrow and evaluate . 3. Hypothyroidism - has been off meds - will plan to check TSH and FT4 at 6 week visit. 4. Anemia in - continue PNV and iron supplement and will check CBC at 6 week visit. - General Info Date of Service: 02/28/21 Admission Dx/Problem (Free Text: Patient Status Order with Admit Dx/Problem 02/26/21 22:47 Patient Status [ADT] Routine 02/26/21 23:05 Patient Status [ADT] Routine 02/27/21 23:05 Patient Status [ADT] Routine Admission Diagnosis/Problem Admission Diagnosis/Problem Spontaneous vaginal delivery Functional Status: Reports: Pain Controlled, Tolerating Diet, Ambulating, Urinating - Review of Systems General: Reports: No Symptoms HEENT: Reports: No Symptoms Pulmonary: Reports: No Symptoms Cardiovascular: Reports: No Symptoms Gastrointestinal: Reports: No Symptoms Genitourinary: Reports: No Symptoms Musculoskeletal: Reports: No Symptoms Skin: Reports: No Symptoms Neurological: Reports: No Symptoms Psychiatric: Reports: No Symptoms - Patient Data Vitals - Most Recent: Last Vital Signs Temp 36.6 C 02/28/21 03:59 Pulse 70 02/28/21 03:59 Resp 16 02/28/21 03:59 BP 103/56 L 02/28/21 03:59 Pulse Ox 99 02/28/21 03:59 Weight - Most Recent: 67.132 kg Lab Results - Last 24 hrs: Laboratory Results - last 24 hr 02/26/21 Range/Units 23:20 RPR Non-reactive (NONREACTIVE) Med Orders - Current: Current Medications Benzocaine/Menthol (Benzocaine/Menthol 20%-0.5% [place] 56 Gm Canister) 0 gm TOP ASDIRECTED PRN PRN Reason: Perineal Comfort Measure Docusate Sodium (Docusate Sodium 100 Mg Cap) 100 mg PO BID PRN PRN Reason: Constipation Last Admin: 02/28/21 07:53 Dose: 100 mg Documented by: Ibuprofen (Ibuprofen 800 Mg Tab) 800 mg PO Q6H PRN PRN Reason: Mild pain or fever Last Admin: 02/28/21 04:18 Dose: 800 mg Documented by: Prenat Multivit/[place]/Iron/Folic Ac ( Multivitamin With Calcium/Folic Acid/Iron Tab) 1 each PO DAILY POLI Last Admin: 02/27/21 08:03 Dose: 1 each Documented by: Renzo Chavez (Renzo Chavez Medicated Pads 40/Jar) 1 pad TOP ASDIRECTED PRN PRN Reason: Perineal Comfort Measure Discontinued Medications Acetaminophen (Acetaminophen 325 Mg Tab) 650 mg PO Q4H PRN PRN Reason: Pain (Mild 1-3) and fever Bupivacaine HCl (Bupivacaine 0.25% 10 Ml Sdv) 10 ml .ROUTE .STK-MED ONE Stop: 02/27/21 03:01 Calcium Carbonate/Glycine (Calcium Carbonate 500 Mg Tab.Chew) 1,000 mg PO Q2H PRN PRN Reason: Indigestion Diphenhydramine HCl (Diphenhydramine 50 Mg/Ml Sdv) 25 mg IVPUSH Q6H PRN PRN Reason: pruritis Ephedrine Sulfate (Ephedrine 50 Mg/Ml Sdv) 5 mg IVPUSH ASDIRECTED PRN PRN Reason: Hypotension Fentanyl (Fentanyl 100 Mcg/2 Ml Sdv) 100 mcg EPIDUR Q3H PRN PRN Reason: Pain Last Admin: 02/27/21 00:19 Dose: 100 mcg Documented by: Fentanyl/Bupivacaine HCl (Bupivacaine/Fentanyl/Ns 100 Ml Bag) 100 ml EPIDUR ASDIRECTED PRN PRN Reason: Pain Last Admin: 02/27/21 00:19 Dose: 100 ml Documented by: Lactated Ringer's (Ringers, Lactated) 1,000 mls @ 100 mls/hr IV ASDIRECTED POLI Last Admin: 02/27/21 00:15 Dose: 100 mls/hr Documented by: Oxytocin/Lactated Ringer's (Pitocin In Lr 10 Units/1,000 Ml) 10 unit in 1,000 mls @ 500 mls/hr IV .CONTINUOUS POLI Last Admin: 02/27/21 01:46 Dose: 500 mls/hr Documented by: Oxytocin/Lactated Ringer's (Pitocin In Lr 10 Units/1,000 Ml) 10 unit in 1,000 mls @ 12 mls/hr IV TITRATE POLI; Protocol Lidocaine HCl (Lidocaine 1% 50 Ml Mdv) 50 ml INJECT ONETIME ONE Stop: 02/26/21 23:05 Last Admin: 02/27/21 03:40 Dose: Not Given Documented by: Nalbuphine HCl (Nalbuphine 10 Mg/1 Ml Vial) 10 mg IVPUSH Q2H PRN PRN Reason: Pain Ondansetron HCl (Ondansetron 4 Mg/2 Ml Sdv) 4 mg IVPUSH Q4H PRN PRN Reason: Nausea/Vomiting Sodium Chloride (Sodium Chloride 0.9% 10 Ml Syringe) 10 ml FLUSH ASDIRECTED PRN PRN Reason: Keep Vein Open - Exam General: Reports: Alert, Oriented, Cooperative, No Acute Distress HEENT: Reports: Pupils Equal, Mucous Membr. Moist/[place] Neck: Reports: Supple Lungs: Reports: Normal Respiratory Effort Cardiovascular: Reports: Regular Rate, Regular Rhythm GI/Abdominal Exam: Normal Bowel Sounds, Soft (Female) Exam: Normal External Exam, Fundal Height (Fundus is 2 fingers below U and firm), Vaginal Bleeding Rectal (Female) Exam: Deferred Back Exam: Reports: Normal Inspection, Full Range of Motion, Other (epidural site not bruised and minimal tenderness) Extremities: Normal Inspection, Normal Range of Motion, Non-Tender, No Pedal Edema, Normal Capillary Refill Skin: Reports: Warm, Dry, Intact Neurological: Reports: No New Focal Deficit Psy/Mental Status: Reports: Alert, Normal Affect, Normal Mood
== END 2021-02-28 09:35 | disposition home or self-care (01) | DRG 807 ==
LOC: JD.OB 22:41 → JD.OBCHECK 22:41 → JD.OB 23:05 → OBSVTOIN 02-27 01:45 → JD.OB 02-27 01:46
PROVIDERS: ADMIT Family Medicine; ATTEND Family Medicine
PROC: 10E0XZZ Delivery of Products of Conception, External Approach (ICD-10-PCS; principal; 2021-02-27)
PROC: 3E0R3BZ Introduction of Anesthetic Agent into Spinal Canal, Percutaneous Approach (ICD-10-PCS; 2021-02-27)
PROC: 10907ZC Drainage of Amniotic Fluid, Therapeutic from Products of Conception, Via Natural or Artificial Opening (ICD-10-PCS; 2021-02-27)
DX: O48.0 Post-term pregnancy (principal); Z37.0 Single live birth; Z3A.40 40 weeks gestation of pregnancy; O99.02 Anemia complicating childbirth; D64.9 Anemia, unspecified; O76 Abnormality in fetal heart rate and rhythm complicating labor and delivery; Z20.822 Contact with and (suspected) exposure to COVID-19
CPT/HCPCS: 01967; 36415; 51702; 59025; 59409; 85025; 86592; 86850; 86900; 86901; A9270-GY; J2590; J3010; J3490; J7120; U0002

== ENCOUNTER 2023-10-02 07:00 | Day surgery (SDC) | payer OTHER ==
[~2023-10-02 07:00] MED LIST: Sodium Chloride 0.9% 10 ML Syringe FLUSH PRN; Sodium Chloride 0.9% 10 ML Syringe FLUSH SCH
[2023-10-02] MEDS ORDERED: fentaNYL 100 MCG/2 ML SDV ONE ×2 (07:13→07:50)
[2023-10-02] MEDS ORDERED: Propofol 200 MG/20 ML SDV ONE (07:13)
[2023-10-02] MEDS: Lactated Ringers 1,000 ML IV SCH (07:20)
[2023-10-02] MEDS: Doxycycline Monohydrate 100 MG Cap PO SCH (07:21)
[2023-10-02] MEDS ORDERED: Methylergonovine 0.2 MG/1 ML Amp ONE (07:31)
[2023-10-02] MEDS ORDERED: Midazolam 1 MG/ML 2 ML SDV ONE (07:32)
[2023-10-02] MEDS ORDERED: HYDROmorphone 0.5 MG/0.5 ML Syringe ONE (08:04)
[2023-10-02] MEDS ORDERED: Lactated Ringers 1,000 ML ONE (08:15)
[2023-10-02] MEDS ORDERED: Ondansetron 4 MG/2 ML SDV ONE (08:24)
== END 2023-10-02 10:35 | disposition home or self-care (01) ==
LOC: JD.SDS 07:00
PROVIDERS: ATTEND Obstetrics & Gynecology
DX: O03.4 Incomplete spontaneous abortion without complication (principal); K59.09 Other constipation; F32.A Depression, unspecified; F17.200 Nicotine dependence, unspecified, uncomplicated; K21.9 Gastro-esophageal reflux disease without esophagitis; E03.9 Hypothyroidism, unspecified; O03.9 Complete or unspecified spontaneous abortion without complication; Z79.899 Other long term (current) drug therapy; Z88.0 Allergy status to penicillin
CPT/HCPCS: 59812; A9270; J1170; J2210; J2250; J2405; J2704; J3010; J7120; 01965

== ENCOUNTER 2024-11-19 10:42 | Inpatient (IN) | payer BC ==
[2024-11-19] MEDS ORDERED: Nalbuphine 10 MG/1 ML Vial IVPUSH PRN (11:54)
[2024-11-19] MEDS ORDERED: Lidocaine 1% 50 ML MDV INJECT PRN (11:54)
[2024-11-19] MEDS ORDERED: Sodium Chloride 0.9% 10 ML Syringe FLUSH PRN (11:54)
[2024-11-19] MEDS ORDERED: Ondansetron 4 MG/2 ML SDV IVPUSH PRN (11:54)
[2024-11-19 13:36] LABS: BASOPHILS PERCENT AUTO 0.3 % (0.0-1.0); EOSINOPHILS PERCENT AUTO 0.3 % (0.0-6.0); HEMATOCRIT 31.6 % (37.0-47.0); HEMOGLOBIN 9.6 gm/dl (12.0-16.0); IMMATURE GRAN ABSOLUTE AUTO 0.08 K/mm3 (0.00-0.05); IMMATURE GRAN PERCENT AUTO 0.8 % (0.0-0.4); LYMPHOCYTES ABSOLUTE AUTO 1.2 K/mm3 (1.0-4.8); LYMPHOCYTES PERCENT AUTO 12.4 % (24.0-44.0); MEAN CORPUSCULAR HEMOGLOBIN 23.4 pg (28.0-32.0); MEAN CORPUSCULAR HGB CONC 30.4 g/dl (32.0-36.0); MEAN CORPUSCULAR VOLUME 77.1 fl (83.0-99.0); MEAN PLATELET VOLUME 10.6 fl (9.4-12.3); MONOCYTES ABSOLUTE AUTO 0.4 K/mm3 (0.0-0.8); NEUTROPHILS PERCENT AUTO 82.2 % (41.0-71.0); PLATELET COUNT,PLT 275 K/mm3 (150-400); WHITE BLOOD CELL COUNT,WBC 9.72 K/mm3 (3.9-11.3)
[2024-11-19] MEDS ORDERED: Sodium Chloride 0.9% 10 ML Syringe FLUSH SCH (21:00)
[2024-11-19] MEDS: Lactated Ringers 1,000 ML IV SCH (22:40)
[2024-11-19] MEDS: Oxytocin/0.9 % Sodium Chloride 30 UNIT/500 ML BAG IV SCH (22:49)
[2024-11-19] MEDS: fentaNYL 100 MCG/2 ML SDV IVPUSH ONE (22:57)
[2024-11-19] MEDS ORDERED: Acetaminophen 325 MG Tab PO PRN (23:38)
[2024-11-19] MEDS ORDERED: Docusate Sodium 100 MG Cap PO PRN (23:38)
[2024-11-19] MEDS ORDERED: Benzocaine/Menthol 20%-0.5% Spray 78 GM Cannister TOP PRN (23:38)
[2024-11-19] MEDS ORDERED: Witch Hazel Medicated Pads 40/Jar TOP PRN (23:38)
[2024-11-19] MEDS: Ibuprofen 600 MG Tab PO SCH (23:45)
[2024-11-20] MEDS: Ibuprofen 600 MG Tab PO SCH (20:23)
== END 2024-11-20 23:46 | disposition home or self-care (01) | DRG 560 ==
LOC: JD.OB 10:42 → OBSVTOIN 22:36 → JD.OB 22:36
PROVIDERS: ADMIT Obstetrics & Gynecology; ATTEND Obstetrics & Gynecology
PROC: 10E0XZZ Delivery of Products of Conception, External Approach (ICD-10-PCS; principal; 2024-11-19)
PROC: 10907ZC Drainage of Amniotic Fluid, Therapeutic from Products of Conception, Via Natural or Artificial Opening (ICD-10-PCS; 2024-11-19)
PROC: 10D17Z9 Manual Extraction of Products of Conception, Retained, Via Natural or Artificial Opening (ICD-10-PCS; 2024-11-19)
PROC: 3E033VJ Introduction of Other Hormone into Peripheral Vein, Percutaneous Approach (ICD-10-PCS; 2024-11-19)
DX: O48.0 Post-term pregnancy (principal); Z3A.40 40 weeks gestation of pregnancy; Z37.0 Single live birth; O99.02 Anemia complicating childbirth; O99.284 Endocrine, nutritional and metabolic diseases complicating childbirth; E03.9 Hypothyroidism, unspecified; Z79.890 Hormone replacement therapy
CPT/HCPCS: 36415; 59025; 59409; 85025; 86592; 86850; 86900; 86901; A9270-GY; J0694; J3010; J3490; J7120; J7999